=== PATIENT | male | born 1980 | race African-American/Black ===

== ENCOUNTER 2021-06-19 16:06 | Emergency (ER) | payer OTHER ==
[~2021-06-19] VITALS: Ht 195.6 cm; Wt 104.3 kg
[2021-06-19] MEDS ORDERED: HYZAAR 100-12.1 EACH PO (16:35)
[2021-06-19] MEDS ORDERED: LEVOTHYROXINE50 MC1 PO (16:36)
== END 2021-06-19 18:58 | disposition home or self-care (01) ==
LOC: ER 16:06
DX: R30.0 Dysuria (principal)

== ENCOUNTER 2022-01-20 14:55 | Emergency (ER) | payer OTHER ==
[~2022-01-20] VITALS: Ht 195.6 cm; Wt 99.3 kg
[~2022-01-20 14:55] MED LIST: HYZAAR 100-12.1 EACH PO; LEVOTHYROXINE50 MC1 PO
== END 2022-01-20 18:19 | disposition home or self-care (01) ==
LOC: ER 14:55
DX: U07.1 COVID-19 (principal)

== ENCOUNTER 2022-01-22 10:33 | Outpatient (CLI) | payer OTHER | END 2022-01-22 12:00 | disposition home or self-care (01) | LOC: ASH CLINIC 10:33 | PROVIDERS: ATTEND General Practice | DX: Z23 Encounter for immunization (principal); U07.1 COVID-19 ==

== ENCOUNTER → 2022-02-10 | Emergency (ER) | payer OTHER ==
[~2022-02-10] VITALS: Ht 195.6 cm; Wt 99.8 kg
== END | disposition home or self-care (01) ==
LOC: ER 15:14
DX: R10.32 Left lower quadrant pain (principal); K59.00 Constipation, unspecified; R31.9 Hematuria, unspecified; I10 Essential (primary) hypertension

== ENCOUNTER 2023-11-15 03:11 | Emergency (ER) | payer OTHER ==
[~2023-11-15] VITALS: Ht 195.6 cm; Wt 104.3 kg
[2023-11-15] MEDS ORDERED: GUAIFENESIN/DEXTROMETHORPHAN 100 MG/5 ML ML PO STA (05:07)
[2023-11-15] MEDS ORDERED: ALBUTEROL SULFATE 3 ML/2.5 MG AMPUL.NEB IH SCH (05:15)
[2023-11-15 05:34] LABS: HEMATOCRIT 37.8 % (39.0-48.0); HEMOGLOBIN 12.8 g/dL (13-16.00); MEAN CELL VOLUME 74.9 fL (80.0-100.00); MEAN CORPUSCULAR HEMOGLOBIN 25.4 pg (27.00-32.0); MEAN CORPUSCULAR HGB CONC 33.8 g/dl (32.0-36.0); PLATELET COUNT 239 K/uL (150-450); RED BLOOD COUNT 5.05 M/uL (4.00-6.00); RED CELL DISTRIBUTION WIDTH 14.1 % (11.5-14.5)
[2023-11-15 05:35] LABS: ABG PH 7.413 (7.35-7.45); ABG PO2 71.6 mmHg (80-100); ABG pCO2 39.3 mmHg (35-45); BASE EXCESS 0 mmol/l; BICARBONATE 24.5 mmol/l (23-25); SaO2 94.4 %; Tco2 25.7 mmol/l; allen test SATISFACTORY; o2 21 %; puncture site RADIAL LEFT
[2023-11-15] MEDS ORDERED: ALBUTEROL2.5 MG/3 M IH (07:16)
[2023-11-15] MEDS ORDERED: ZITHROMAX500 MG PO (07:16)
[2023-11-15] MEDS ORDERED: BUDESONIDE0.5 MG/2 M IH (07:16)
[2023-11-15] MEDS ORDERED: ZYNCOF 20-400120 ML PO (07:16)
== END 2023-11-15 07:27 ==
LOC: ER 03:12
PROVIDERS: General Practice
DX: R68.83 Chills (without fever) (principal); R06.02 Shortness of breath; R05.9 Cough, unspecified; Z20.822 Contact with and (suspected) exposure to COVID-19

== ENCOUNTER 2024-05-30 16:33 | Emergency (ER) | payer OTHER ==
[~2024-05-30] VITALS: Ht 195.6 cm; Wt 104.3 kg
[~2024-05-30 16:33] MED LIST changes: +ALBUTEROL2.5 MG/3 M IH; +BUDESONIDE0.5 MG/2 M IH; +ZITHROMAX500 MG PO; +ZYNCOF 20-400120 ML PO
[2024-05-30] MEDS ORDERED: RISPERDAL1 MG (16:42)
[2024-05-30] MEDS ORDERED: KETOROLAC TROMETHAMINE 60 MG VIAL IM ONE ×2 (17:59→18:00)
== END 2024-05-30 21:35 | disposition home or self-care (01) ==
LOC: ER 16:33
DX: S83.91XA Sprain of unspecified site of right knee, initial encounter (principal); W18.39XA Other fall on same level, initial encounter; Y93.89 Activity, other specified; Y92.89 Other specified places as the place of occurrence of the external cause; Y99.9 Unspecified external cause status; I10 Essential (primary) hypertension; E03.9 Hypothyroidism, unspecified